=== PATIENT | female | born 1950 | race American Indian/Alaskan Native ===

== ENCOUNTER 2016-12-19 19:45 | Emergency (ER) | payer MEDICARE ==
[2016-12-19 20:25] LABS: Basophils % (Auto) 0.2 % (0.0-1.8); Hematocrit 38.8 % (30.3-42.9); Hemoglobin 12.2 gm/dl (10.1-14.3); Mean Corpuscular HGB Conc 32 % (30-34); Mean Corpuscular Volume 79 fl (79-97); Platelet Count 217 K/mm3 (140-440); Red Blood Count 4.93 M/mm3 (3.65-5.03); Red Cell Distribution Width 15.1 % (13.2-15.2); White Blood Count 18.6 K/mm3 (4.5-11.0)
[2016-12-19 20:29] LABS: Mean Corpuscular Hemoglobin 25 pg (28-32)
[2016-12-19 20:44] LABS: Alanine Aminotransferase 28 units/L (7-56); Albumin 3.9 g/dL (3.9-5); Albumin/Globulin Ratio 1.1 %; Alkaline Phosphatase 60 units/L (35-129); Anion Gap 19 mmol/L; BUN/Creatinine Ratio 13.33; Blood Urea Nitrogen 12 mg/dL (7-17); Calcium 9.6 mg/dL (8.4-10.2); Carbon Dioxide 26 mmol/L (22-30); Glucose 349 mg/dL (65-100); Lipase 15 units/L (13-60); Potassium 3.9 mmol/L (3.6-5.0); Sodium 135 mmol/L (137-145); Total Protein 7.4 g/dL (6.3-8.2)
[2016-12-20 00:26] LABS: Bacteria,Urine 2+ /HPF (Negative); Bilirubin,Urine NEG (Negative); Blood,Urine MOD (Negative); Ketones,Urine NEG (Negative); Leukocyte Esterase,Urine LG (Negative); Mucus,Urine FEW /HPF; Nitrite,Urine POS (Negative); Urobilinogen,Urine < 2.0 mg/dL (<2.0)
[2016-12-20 00:29] LABS: WBC,Urine > 182.0 /HPF (0.0-6.0)
[2016-12-20] MEDS ORDERED: ROCEPHIN/NS 1 GM/50 ML 1 GM/50 ML BAG IV ONE (01:35)
[2016-12-20] MEDS ORDERED: TYLENOL PO ONE (01:36)
[2016-12-20] MEDS ORDERED: ZOFRAN ONE ×2 (02:18→04:43)
[2016-12-20] MEDS ORDERED: ZOFRAN IV ONE (02:22)
--- NOTE | 2016-12-20 02:39 | Emergency Department Report ---
HPI - General Chief Complaint: Abdominal Pain Time Seen by Provider: 12/20/16 01:13 - HPI HPI: This is a 66-year-old Afro-[place] female who presents to the emergency department from home with complaint of a 4-5 day history of some dysuria. As soon as this started, the patient took 2 days worth of Azo [id number]. The patient believes that she had a reaction to this medication and she started having intermittent chills, nausea, upper abdominal pain and headaches. The headache is frontal and intermittent but currently intense. She's been having nausea but no vomiting. She has a history of rul-[id number] diabetes and hypertension. Her primary care doctor is a Dr. Joshua but she has not seen them regarding her symptoms. No recent travel or sick contacts at home. The patient did not check her temperature at home but has been having moments where she wakes up and sweats and other times where she feels very cold. She denies any back pain, vaginal bleeding, vaginal discharge, chest pain or shortness of breath. ED Past Medical Hx - Medications Home Medications: Home Medications Medication Instructions Recorded Confirmed Last Taken Type Cephalexin [Keflex] 1,000 mg PO Q12HR #28 cap 12/20/16 Unknown Rx Ergocalciferol (Vitamin D2) 1.25 unit PO DAILY 12/20/16 12/20/16 12/19/16 History [Vitamin D2] Furosemide [Lasix] 20 mg PO QDAY 12/20/16 12/20/16 12/19/16 History Gabapentin [Neurontin] 300 mg PO Q8HR 12/20/16 12/20/16 12/19/16 History Loratadine 10 mg PO DAILY 12/20/16 12/20/16 12/19/16 History Metformin HCl [Metformin HCl ER] 750 mg PO BID 12/20/16 12/20/16 12/19/16 History Metoprolol [Lopressor] 100 mg PO DAILY 12/20/16 12/20/16 12/19/16 History Duchesne-3/Dha/Epa/Fish Oil [Duchesne 3 1 each PO DAILY 12/20/16 12/20/16 12/19/16 History 500 Softgel] Omeprazole 20 mg PO BID 12/20/16 12/20/16 12/19/16 History Ondansetron [Zofran Odt] 4 mg PO Q8H PRN #10 tab.rapdis 12/20/16 Unknown Rx Potassium Chloride [Klor-Con 10] 10 meq PO DAILY 12/20/16 12/20/16 12/19/16 History Simvastatin [Zocor TAB] 10 mg PO QHS 12/20/16 12/20/16 12/19/16 History amLODIPine [Norvasc] 10 mg PO DAILY 12/20/16 12/20/16 12/19/16 History hydrALAZINE [Apresoline TAB] 10 mg PO BID 12/20/16 12/20/16 12/19/16 History ED Review of Systems ROS: Stated complaint: UTI, ABD PAIN, Other details as noted in HPI Comment: All other systems reviewed and negative Constitutional: chills, diaphoresis, fever (subjective) Eyes: denies: eye pain, eye discharge, vision change ENT: denies: ear pain, throat pain Respiratory: denies: cough, shortness of breath, wheezing Cardiovascular: denies: chest pain, palpitations Gastrointestinal: abdominal pain, nausea. denies: vomiting Genitourinary: dysuria. denies: discharge Musculoskeletal: denies: back pain, joint swelling, arthralgia Skin: denies: rash, lesions Neurological: denies: headache, weakness, paresthesias Physical Exam - Physical Exam Vital Signs: Vital Signs 12/19/16 20:47 Temperature 98.8 F Pulse Rate 97 H Respiratory 18 Rate Blood Pressure 161/77 [Right] O2 Sat by Pulse 97 Oximetry Physical Exam: GENERAL: The patient is well-developed well-nourished. HEENT: Normocephalic. Atraumatic. Extraocular motions are intact. Patient has moist mucous membranes. Pupils equal reactive to light bilaterally. NECK: Supple. Trachea is midline. CHEST/LUNGS: Clear to auscultation. There is no respiratory distress noted. HEART/CARDIOVASCULAR: Regular. There is no tachycardia. There is no gallop rub or murmur. ABDOMEN: Abdomen is soft. There is some lower abdominal tenderness to palpation. No guarding rebound tenderness. Patient has normal bowel sounds. There is no abdominal distention. SKIN: Skin is warm and dry. NEURO: The patient is awake, alert, and oriented. The patient is cooperative. The patient has no focal neurologic deficits. The patient has normal speech and gait. Cranial nerves II through XII grossly intact. MUSCULOSKELETAL: There is no tenderness or deformity. There is no limitation range of motion. There is no evidence of acute injury. ED Course Vital Signs 12/19/16 20:47 Temperature 98.8 F Pulse Rate 97 H Respiratory 18 Rate Blood Pressure 161/77 [Right] O2 Sat by Pulse 97 Oximetry ED Medical Decision Making - Lab Data Result diagrams: 12/19/16 20:13 12/19/16 20:13 - Radiology Data Radiology results: report reviewed PROCEDURE: CT ABDOMEN PELVIS W CON TECHNIQUE: Computerized axial tomography of the abdomen and pelvis was performed after the IV injection of iodinated nonionic contrast. HISTORY: abd pain COMPARISON: No prior studies are available for comparison. FINDINGS: Visualized lower thorax: No significant abnormality. Liver: The liver is enlarged and slightly fatty. There is no mass.. Spleen: Normal size and attenuation. Gallbladder and biliary system: Normal. Pancreas: Normal. Adrenals: Normal. Kidneys: There are no kidney stones or ureteral stones. There is no hydronephrosis.. GI tract: There is no bowel obstruction, colitis or enteritis. The appendix is normal.. Lymph nodes and mesentery: Normal. Vasculature: Normal. Bladder: Normal. Reproductive organs: The uterus is enlarged to due to fibroids. Dominant fibroid is seen in the fundus measuring approximately 13 centimeters in greatest diameter. There is no ovarian abnormality.. Peritoneum: There is no ascites, free air, abscess or adenopathy.. Musculoskeletal structures: No significant abnormality. Other: None. IMPRESSION: The liver is enlarged and slightly fatty. There is no mass.. There are no kidney stones or ureteral stones. There is no hydronephrosis.. There is no bowel obstruction, colitis or enteritis. The appendix is normal.. The uterus is enlarged to due to fibroids. Dominant fibroid is seen in the fundus measuring approximately 13 centimeters in greatest diameter. There is no ovarian abnormality.. There is no ascites, free air, abscess or adenopathy.. - Medical Decision Making 66-year-old female that presents with symptoms of a urinary tract infection and then development of some nausea without vomiting, intermittent fevers and some lower abdominal discomfort. It is possible that the patient had some reaction to the [id number] Azo that she was taking, but it is also possible that her other symptoms were just sequela of a urinary tract infection or other underlying condition. Patient's labs did show a leukocytosis of about 18,000. She has some hyperglycemia with a blood sugar of about 300 but does not appear to have any diabetic ketoacidosis or HHNK. Urinalysis does show a urinary tract infection with greater than 180 wbc's and some mild blood in the urine. Patient's temperature was rechecked and she was found have a fever of 102. She was given some Tylenol for fever and discomfort. She was given a dose of Rocephin through the IV and some IV fluid resuscitation. A CT of the abdomen and pelvis with IV contrast was done that came back showing a 12 cm fibroid causing enlarged uterus. This may be lead the source of her discomfort, in conjunction with the urinary tract infection. Her vitals were rechecked and the fever has resolved. The patient was reevaluated multiple times over multiple hours and says she is feeling improved. I offered to give her a very small amount of IV insulin to bring her blood sugar down but she said that she already took her metformin and declined. She has good follow-up with primary care. For these reasons she will be discharged home at this time with Zofran for nausea and Keflex for urinary tract infection. However if she has any worsening of her symptoms, intractable fever or vomiting, intractable abdominal pain or any acute distress, she will return to the emergency department immediately. She understands and agrees to the plan. - Differential Diagnosis UTI, pyelonephritis, fibroid, diverticulitis, sepsis Critical Care Time: No Critical care attestation.: If time is entered above; I have spent that time in minutes in the direct care of this critically ill patient, excluding procedure time. ED Disposition Clinical Impression: Hyperglycemia Fever Qualifiers: Fever type: unspecified Qualified Code(s): R50.9 - Fever, unspecified UTI (urinary tract infection) Qualifiers: Urinary tract infection type: acute cystitis Hematuria presence: with hematuria Qualified Code(s): N30.01 - Acute cystitis with hematuria Nausea & vomiting Qualifiers: Vomiting type: unspecified Vomiting Intractability: non-intractable Qualified Code(s): R11.2 - Nausea with vomiting, unspecified Fibroid Qualifiers: Uterine leiomyoma location: unspecified location Qualified Code(s): D25.9 - Leiomyoma of uterus, unspecified Hypertension Qualifiers: Hypertension type: essential hypertension Qualified Code(s): I10 - Essential ( primary) hypertension Disposition: DC- TO HOME OR SELFCARE Is pt being admited?: No Condition: Stable Instructions: Uterine Fibroids (ED), Urinary Tract Infection in Women (ED), Abdominal Pain (ED), Hypertension (ED), Diabetic Hyperglycemia (ED) Additional Instructions: Please follow-up with your primary care physician in the next few days. Take the antibiotics as prescribed. You can take Tylenol every 4 hours and ibuprofen every 6 hours, using weight-based dosing, as needed for fever or discomfort. Return to the emergency department with any worsening of your symptoms, intractable vomiting, intractable fever, development of chest pain or shortness of breath, or any acute distress. Prescriptions: Cephalexin [Keflex] 1,000 mg PO Q12HR #28 cap Ondansetron [Zofran Odt] 4 mg PO Q8H PRN #10 tab.rapdis PRN Reason: Nausea Referrals: DAV JOSHUA MD [Primary Care Provider] - 3-5 Days Time of Disposition: 04:38
--- NOTE | 2016-12-20 04:08 | Cat Scan Report ---
FINAL REPORT PROCEDURE: CT ABDOMEN PELVIS W CON TECHNIQUE: Computerized axial tomography of the abdomen and pelvis was performed after the IV injection of iodinated nonionic contrast. HISTORY: abd pain COMPARISON: No prior studies are available for comparison. FINDINGS: Visualized lower thorax: No significant abnormality. Liver: The liver is enlarged and slightly fatty. There is no mass.. Spleen: Normal size and attenuation. Gallbladder and biliary system: Normal. Pancreas: Normal. Adrenals: Normal. Kidneys: There are no kidney stones or ureteral stones. There is no hydronephrosis.. GI tract: There is no bowel obstruction, colitis or enteritis. The appendix is normal.. Lymph nodes and mesentery: Normal. Vasculature: Normal. Bladder: Normal. Reproductive organs: The uterus is enlarged to due to fibroids. Dominant fibroid is seen in the fundus measuring approximately 13 centimeters in greatest diameter. There is no ovarian abnormality.. Peritoneum: There is no ascites, free air, abscess or adenopathy.. Musculoskeletal structures: No significant abnormality. Other: None. IMPRESSION: The liver is enlarged and slightly fatty. There is no mass.. There are no kidney stones or ureteral stones. There is no hydronephrosis.. There is no bowel obstruction, colitis or enteritis. The appendix is normal.. The uterus is enlarged to due to fibroids. Dominant fibroid is seen in the fundus measuring approximately 13 centimeters in greatest diameter. There is no ovarian abnormality.. There is no ascites, free air, abscess or adenopathy..
[2016-12-20 04:27] VITALS: BP 165/85
== END 2016-12-20 04:53 | disposition home or self-care (01) ==
LOC: ED 19:45
DX: N30.01 Acute cystitis with hematuria (principal); D25.9 Leiomyoma of uterus, unspecified; I10 Essential (primary) hypertension; E11.65 Type 2 diabetes mellitus with hyperglycemia
CPT/HCPCS: 36415; 74177; 80053; 81001; 82140; 82962; 83690; 85025; 96365; 96375; 99284; J0696; J2405; Q9967; J1815